=== PATIENT | female | born 1960 | race African-American/Black ===

== ENCOUNTER → 2018-02-06 07:17 | Outpatient (CLI) | payer MEDICAID, SELFPAY ==
--- NOTE | 2018-02-06 | BRBX_PTH ---
PATIENT: OFELIA MCCARTHY LOC: [facility] U#:[id number] AGE/SX: 64/F ROOM: RE02/06/[address]: Dr. Shyanne Layton MD : 1960 BED: DIS: SPEC #: [id number] RECD: 02/06/18 12:18 STATUS: BRITTON REQ #: [id number] REDD: 02/06/18 00:[address]: Shyanne Layton DEPT: SURGICAL PATHOLOGY RECD BY: Cooper Stock ENTERED: 02/06/18 12:19 SP TYPE: BREAST BX OTHR DR: Dr. Dori Sharif MD Tissues: Right breast, NOS Procedures: Surgery Specimen Level IV HEADER OPERATION: Right stereotactic breast biopsy PRE-OP DIAGNOSIS: Right 1 o'clock middle depth breast microcalcifications TISSUE SUBMITTED: Right breast core tissue ISCHEMIC TIME: 1 minute FIXATION TIME: 9.5 hours MICROSCOPIC DIAGNOSIS Right breast, 1 o'clock middle depth, stereotactic core biopsy: Hyalinized fibroadenoma with focal calcification. Negative for atypia or malignancy. CHARITO:steve 02/07/18 COMMENT The specimen predominantly consists of fatty benign breast tissue and one fragment of hyalinized fibroadenoma. Correlation with clinical, radiologic findings and appropriate follow up are necessary. MICROSCOPIC DESCRIPTION Slides are reviewed. GROSS DESCRIPTION Received is one container labeled with the patient's name and not further designated. The specimen consists of multiple elongated fragments of brown-yellow fibroadipose tissue that in aggregate measure 5 x 3 x 0.3 cm. The entire specimen is submitted in two cassettes. / CHARITO:steve 02/06/18 TC:1 CPT: 83570
--- NOTE | 2018-02-06 11:13 | PCM.OPRPT ---
Report of Operation Date of Procedure: 02/06/18 Pre-Operative Diagnosis: abnormal calcifications of upper inner right breast by mammograms Post-Operative Diagnosis: Same Surgery/Procedure Performed:: right stereotactic breast biopsy Description of Surgical Findings:: abnormal calcifications on upper inner aspect of right breast Type of Anesthesia:: Local - 1% xylocaine Anesthesiologist: none Specimen's removed: right breast tissue Estimated Blood Loss (mL): < 1 cc Fluids Replaced: none Description of Procedure: After informed consent was given, the patient was brought into the breast biopsy suite. Appropriate time out protocol was followed. She was then placed in the prone position on the stereotactic biopsy table. The patient?s right breast was then placed in the opening at the head of the table. A artificial cherry maker compression mammogram was then obtained in the CC view. The abnormal calcifications were then identified. Stereo pictures of the lesion were then taken for XYZ coordinates. The Mammotome biopsy stylus was then positioned where it would be entering into the patient?s breast. The skin at this site was then cleansed with a surgical skin preparation. The skin and subcutaneous tissues at this site were then infiltrated with 1% xylocaine. A small skin incision was made with an 11 blade scalpel. The biopsy stylus was then positioned into the patient?s breast at the proper coordinates of depth. Using the Mammotome vacuum-assist device, several core samples of breast tissue were obtained. A specimen mammogram was the obtained and revealed that the calcifications were within the specimen. A hemostatic marker clip was then placed into the biopsy cavity and a artificial cherry maker film revealed that it was properly deployed. The patient was then placed in the supine position and pressure was applied to the breast until no active bleeding was noted. Steristrips were applied to reapproximate the skin. A unilateral mammogram in the CC and MLO view were then taken which revealed that the marker clip was in the same area as the previous suspicious lesion. The patient tolerated the procedure well and was discharged from the breast biopsy suite in good condition.
--- NOTE | 2018-02-06 11:17 | OP.PCM_ITS ---
Report of Operation Date of Procedure: 02/06/18 Pre-Operative Diagnosis: abnormal calcifications of upper inner right breast by mammograms Post-Operative Diagnosis: Same Surgery/Procedure Performed:: right stereotactic breast biopsy Description of Surgical Findings:: abnormal calcifications on upper inner aspect of right breast Type of Anesthesia:: Local - 1% xylocaine Anesthesiologist: none Specimen's removed: right breast tissue Estimated Blood Loss (mL): < 1 cc Fluids Replaced: none Description of Procedure: After informed consent was given, the patient was brought into the breast biopsy suite. Appropriate time out protocol was followed. She was then placed in the prone position on the stereotactic biopsy table. The patient?s right breast was then placed in the opening at the head of the table. A bomb squad commander compression mammogram was then obtained in the CC view. The abnormal calcifications were then identified. Stereo pictures of the lesion were then taken for XYZ coordinates. The Mammotome biopsy stylus was then positioned where it would be entering into the patient?s breast. The skin at this site was then cleansed with a surgical skin preparation. The skin and subcutaneous tissues at this site were then infiltrated with 1% xylocaine. A small skin incision was made wi th an 11 blade scalpel. The biopsy stylus was then positioned into the patient?s breast at the proper coordinates of depth. Using the Mammotome vacuum-assist device, several core samples of breast tissue were obtained. A specimen mammogram was the obtained and revealed that the calcifications were within the specimen. A hemostatic marker clip was then placed into the biopsy cavity and a bomb squad commander film revealed that it was properly deployed. The patient was then placed in the supine position and pressure was applied to the breast until no active bleeding was noted. Steristrips were applied to reapproximate the skin. A unilateral mammogram in the CC and MLO view were then taken which revealed that the marker clip was in the same area as the previous suspicious lesion. The patient tolerated the procedure well and was discharged from the breast biopsy suite in good condition.
== END ==
PROVIDERS: Family Provider Internal Medicine; PCP Internal Medicine; Referring Provider Surgery; Visit Provider Surgery
DX: R92.0 Mammographic microcalcification found on diagnostic imaging of breast (principal); E11.9 Type 2 diabetes mellitus without complications; I10 Essential (primary) hypertension; G47.33 Obstructive sleep apnea (adult) (pediatric); M54.5 Low back pain; G89.29 Other chronic pain; Z79.899 Other long term (current) drug therapy; Z79.82 Long term (current) use of aspirin
CPT/HCPCS: 19081; 88305; J7050; A4648

== ENCOUNTER 2019-02-16 10:56 | Day surgery (SDC) | payer MEDICAID, SELFPAY ==
--- NOTE | 2019-02-15 17:58 | HP.PCM_ITS ---
History and Physical Date of Admission: 02/16/19 HISTORY AND PHYSICAL ? Karin Talbot 1960 ? REFERRING PHYSICIAN: Dori Sharif MD ? CHIEF COMPLAINT: colon consult ? HPI: The patient is a 58 year old female referred for endoscopy. Karin notes no colon complaints. Patient denies any change in bowel habits, weight changes, blood in stools, black tarry stools or abdominal pain. Denies family history of colon issues. ? The patient NOTES complaints of acid reflux nearly every day, dating back to 2001. Has been on omeprazole long-term with partial control of symptoms. She notes having a remote EGD but none recently. ? Patient had a prior colonoscopy done in [place] in 2013, states had polyps at that time. Operative report and pathology not available for review, but post- procedure note from [facility] [place] reviewed and shows recommendation for recall in 5 years. Patient NOTES that she was completely awake during her last colonoscopy and remembers watching the entire procedure on a screen. ? Patient's past medical history is significant for rheumatoid arthritis, obstructive sleep apnea, hypertension, type II diabetes mellitus, chronic back pain. ? ? PAST?MEDICAL?HISTORY ? Chronic lower back pain ? ? occasional sciatica pain ? Diabetes mellitus type II, controlled (HCC) ? ? HTN, goal below 140/90 03/14/2016 ? SIXTO (obstructive sleep apnea) ? ? [facility] [address] fx. [phone] ? Rheu arthritis w rheu factor mult site w/o org/sys involv (HCC) ? ?? PAST?SURGICAL?HISTORY ? BIOPSY OF BREAST-STEREOTATIC Right 02/06/2018 ?? CURRENT?MEDICATIONS gabapentin (NEURONTIN) 300 mg capsule May take 2- 3 capsules at bedtime as needed for restless legs and insomnia. ciclopirox (LOPROX) 0.77 % susp Apply 1 application to affected area twice daily. To soles of feet and between toes for 4 weeks then discontinue liraglutide (VICTOZA) 0.6 mg/ 0.1 ml subcutaneous pen injector Inject 1.8 mg subcutaneously once daily. Insulin [place], Disposable, (BD ULTRA-FINE HALLIE PEN NEEDLE) 32 gauge x 5/32 ndle Use one needle for each dose. 1x/day. hydroCHLOROthiazide (HYDRODIURIL, ESIDRIX) 25 mg tablet Take 1 tablet by mouth once daily. metFORMIN ER (GLUCOPHAGE XR) 500 mg 24 hr tablet Take 1 tab by mouth daily in the morning and 2 tabs in the evening blood sugar diagnostic (FREESTYLE LITE STRIPS) test strip Test blood sugar(s) 2x times daily. Dx: Type 2 DM - Uncontrolled E11.65 Insulin: No meloxicam (MOBIC) 15 mg tablet Take 1 tablet by mouth once daily. lisinopril (ZESTRIL, PRINIVIL) 40 mg tablet Take 1 tablet by mouth once daily. aspirin, enteric coated (ADULT LOW DOSE ASPIRIN) 81 mg EC tablet Take 1 tablet by mouth once daily. furosemide (LASIX) 20 mg tablet Take 1 tablet by mouth once daily. atenolol (TENORMIN) 25 mg tablet Take 1 tablet by mouth once daily. atorvastatin (LIPITOR) 40 mg tablet Take 1 tablet by mouth once daily. fluticasone (FLONASE) 50 mcg/actuation nasal spray Use 1 [place] in each nostril once daily. omeprazole (PRILOSEC) 20 mg capsule Take 1 capsule by mouth daily before breakfast. acetaminophen (TYLENOL ARTHRITIS PAIN) 650 mg CR tablet Take 1 tablet by mouth twice daily. (Patient not taking: Reported on 10/ escitalopram oxalate (LEXAPRO) 10 mg tablet Take 0.5 tablets by mouth once daily. Potassium Chloride (KLOR-CON 8) 8 mEq tablet Take 1 tablet by mouth once daily. estradiol (CLIMARA) 0.025 mg/24 hr Apply 1 Patch as directed once each week. lancets (FREESTYLE LANCETS) 28 gauge [facility] Test blood sugar(s) 2 times daily and as needed. Dx: Type 2 DM - Uncontrolled E11.65 Insulin: Yes Magnesium 250 mg tab Take 2 tablets by mouth daily at bedtime. hydrocortisone 2.5 % cream Apply 1 application to affected area twice daily. Apply to affected area sparingly. CPAP Need for supplies: Filters, suitable mask per pt preference, chin strap, head gear, humidity, tubing, lifetime supplies. G47.33 Obstructive Sleep Apnea flash glucose scanning reader (FREESTYLE SHE READER) [facility] Use to check blood sugar flash glucose sensor (FREESTYLE SHE SENSOR) kit Use to check blood sugar CPAP Mask (per patient preference) optional chin strap (if indicated), filters, tubing /please send heated tubing, heated humidity and lifetime supplies. Dx. SIXTO G47.33 327.23 CPAP AutoPAP 12-20 cmH2O, suitable mask, humidity, filters. Lifetime supplies. Dx: G47.33 ? ? ALLERGIES: Flagyl [Nitroimidazoles]; Iron; [place] [Hydrocodone-Acetaminophen] ? PERSONAL HISTORY: Socioeconomic History Marital status: Spouse name: Not on file Number of children: Not on file Years of education: Not on file Highest education level: Not on file Occupational History Not on file Social Needs Financial resource strain: Not on file Food insecurity: Worry: Not on file Inability: Not on file Transportation needs: Medical: Not on file Non-medical: Not on file Tobacco Use Smoking status: Never Smoker Smokeless tobacco: Never Used Substance and Sexual Activity Alcohol use: No Drug use: No Sexual activity: Not on file Lifestyle Physical activity: Days per week: Not on file Minutes per session: Not on file Stress: Not on file Relationships Social connections: Talks on phone: Not on file Gets together: Not on file Attends confucianism service: Not on file Active member of club or organization: Not on file Attends meetings of clubs or organizations: Not on file Relationship status: Not on file Intimate partner violence: Fear of current or ex partner: Not on file Emotionally abused: Not on file Physically abused: Not on file Forced sexual activity: Not on file Other Topics Concerns: Not on file Social History Narrative Not on file ? FAMILY HISTORY: ? COPD Mother ? ? Diabetes Mother ? ? Diabetes Father ? ? other (htn) Father ? ? other (htn) Brother ? ? other (kidney failure) Brother ? ? REVIEW OF SYSTEMS: General: The patient NOTES fatigue, denies weight loss, NOTES weight gain, NOTES feeling hot, and denies feelings of cold. Eyes: The patient denies glaucoma, denies eye injury/surgery, wears glasses or contacts. Ear/Nose/Throat: The patient denies allergies, NOTES hayfever, denies ear infections, and denies bloody noses. Cardiovascular: The patient denies chest pain, denies heart disease, NOTES high blood pressure,denies cardiac stent, denies prior heart attack, denies irregular heart beat, NOTES high cholesterol, denies poor circulation, denies heart failure, other cardiac issues, denies claudication, denies cold feet, denies peripheral arterial stent. Respiratory: The patient denies tuberculosis, denies pneumonia, denies frequent cough, denies pulmonary embolism, denies shortness of breath, and denies coughing up blood. Gastrointestinal: The patient denies difficulty swallowing, NOTES acid reflux, denies ulcers, denies vomiting, denies jaundice/hepatitis, denies gallbladder problems, denies black or tarry stools, denies hemorrhoids, denies bleeding from rectum, denies diverticulitis, denies constipation, denies diarrhea, denies loss of stool control, and denies hernias. Kidney/Bladder: The patient denies kidney stones, denies urine infections, and denies bloody urine. Skin: The patient denies a history of skin cancer, denies bleeding/changing moles, and denies a history of skin rash. Neurologic: The patient denies a history of epilepsy/convulsions, denies headaches, denies head/spinal injuries, and denies stroke/TIA. Psychiatric: The patient denies psychiatric medications, denies depression, and denies voices, denies substance abuse. Endocrine: The patient denies thyroid disorders, NOTES diabetes, and denies hormonal problems. Hematologic: The patient denies a history of bruising, denies bleeding, and NOTES anemia, denies blood clots. Infections: The patient denies a history of measles and mumps, denies rheumatic fever, and denies sexually transmitted diseases. Musculoskeletal: The patient denies back pain/injury, denies back problems, denies sciatica, denies knee/foot trouble, NOTES arthritis, or denies gout. ? I have confirmed and edited as necessary, the PFSH and ROS obtained by others. ? PHYSICAL EXAMINATION: ? General: The patient is 58 year old female, well nourished, well hydrated in no acute distress. The patient is oriented to time, place, and person. ? VITALS: Blood pressure 138/74, pulse 90, temperature 36.3 ?C (97.4 ?F), temperature source Temporal Artery, resp. rate 14, height 165.1 cm (5' 5), weight 119.3 kg (263 lb), SpO2 92 %. Body mass index is 43.77 kg/m?. ? HEENT: Normal cephalic, ataumatic, pupils are equally round, sclera are anicteric, mucous membranes are moist, oropharynx is clear. Neck has no masses, asymmetry or lymphadenopathy. ? Respiratory: Clear to auscultation and percussion. Normal respiratory excursion and pattern. ? Cardiac: Examination is regular rate and rhythm. Normal S1/S2 ? Abdominal exam: Soft, nontender, with no palpable masses. No hepatosple nomegaly. No palpable hernias. ? Extremities: no clubbing, cyanosis or edema. No adenopathy. ? LABORATORY VALUES: As Noted ? RADIOLOGIC STUDIES: As Noted IMPRESSION: personal history of colon polyps, need for repeat screening colonoscopy. GERD and long-term PPI use, recommend EGD in addition to colonoscopy ? PLAN: I have reviewed my findings with the surgeon. Will plan for upper and lower endoscopy. We discussed the risks and benefits of the planned endoscopy. I have informed the patient that complications can occur including failure to complete the endoscopy and perforation. The patient had the opportunity to ask questions concerning the planned endoscopy. My staff has also explained the procedure to the patient in understandable terms and has given the patient printed material concerning the procedure. The patient freely consents to surgery. ? I plan to use Golytely bowel preparation ? Patient instructed to contact PCP for instructions regarding diabetic medication, which may require adjustment during bowel preparation and/or day of procedure. She may take her other routine medications as usual ? ? The patient has recall from their previous endoscopy performed under conscious sedation, therfore we will plan for procedure to be performed under Monitored Anesthetic Care. ? ? Diagnoses: (Z12.11) Encounter for screening for malignant neoplasm of colon (primary encounter diagnosis) (Z86.010) Personal history of colonic polyps (K21.9) Gastroesophageal reflux disease, esophagitis presence not specified ? ? Enid Trinh PA-C
[2019-02-16 11:15] VITALS: BP 144/82; PULSE 78; RESP 16; TEMP 36.4; O2SAT 98; BMI 43.6
[2019-02-16 11:31] LABS: Bedside Glucose 97 mg/dL (70-110)
[2019-02-16] MEDS: Lactated Ringers 1,000 ML 100 ML IV ×2 (11:45→13:05)
--- NOTE | 2019-02-16 12:00 | EGD_PTH ---
PATIENT: OFELIA MCCARTHY LOC: [facility] U#:[id number] AGE/SX: 58/F ROOM: RE02/16/[address]: Dr. Shyanne Layton MD : 1960 BED: DIS: 02/16/2019 SPEC #: [id number] RECD: 02/16/19 14:29 STATUS: BRITTON K[place]LEY #: [id number] REDD: 02/16/19 12:[address]: Shyanne Layton DEPT: SURGICAL PATHOLOGY RECD BY: Niko Tamayo ENTERED: 02/16/19 14:41 SP TYPE: EGD BIOPSY OT DR: Dr. Dori Sharif MD Tissues: Gastric mucous membrane Procedures: Surgery Specimen Level IV HEADER OPERATION: Colonoscopy, EGD ([facility]) PRE-OP DIAGNOSIS: GERD, long time use PPI, personal history colon polyps TISSUE SUBMITTED: Gastric polyps MICROSCOPIC DIAGNOSIS Gastric polyps, biopsy: Consistent with fragments of hyperplastic/inflammatory polyp with focal ulceration. See comment. CHARITO:steve 02/17/19 COMMENT Immunohistochemistry for Helicobacter pylori can be performed if clinically indicated. Please notify the Laboratory if it is needed. MICROSCOPIC DESCRIPTION Slides are reviewed. GROSS DESCRIPTION Received in fixative is one container labeled with the patient's name and designated gastric polyps. The specimen consists of multiple irregular fragments of light brown soft tissue that in aggregate measure 1.5 x 0.5 x 0.1 cm. The specimen is totally submitted in one cassette. / CHARITO:steve 02/16/19 TC:5 CPT: 87099
--- NOTE | 2019-02-16 13:04 | OP.ENDO_ITS ---
02/16/2019 Dori Sharif [address] [place] [address] Re : Upper GI endoscopy procedure for Karin Talbot Dear Dr. Sharif This procedure was performed on Saturday, February 16, 2019. My impressions and recommendations are as follows: Impressions : - Normal first portion of the duodenum and second portion of the duodenum. - A few gastric polyps. Resected and retrieved. - No gross lesions in esophagus. Recommendations : - Discharge patient to home (ambulatory). - Resume previous diet. - Continue present medications. - Await pathology results. - My office will telephone with pathology results in 1-2 weeks My findings are described in the full procedure note, which is enclosed. If I can be of further assistance, please feel free to contact me at Doctor phone number(s): , Work: . Sincerely, MD Shyanne Carrasquillo MD 02/16/2019 1:04:32 PM This report has been signed electronically.
[2019-02-16 13:25] VITALS: BP 109/57; BP 144/82; PULSE 71; RESP 16; TEMP 36.6; O2SAT 94
--- NOTE | 2019-02-16 13:26 | OP.ENDO_ITS ---
02/16/2019 Dori Sharif [address] [place] [address] Re : Colonoscopy procedure for Karin Antione Dear Dr. Sharif This procedure was performed on Saturday, February 16, 2019. My impressions and recommendations are as follows: Impressions : - Non-bleeding internal hemorrhoids. - No specimens collected. Recommendations : - Repeat colonoscopy in 5 years for surveillance. - Return to primary care physician PRN. - Continue present medications. My findings are described in the full procedure note, which is enclosed. If I can be of further assistance, please feel free to contact me at Doctor phone number(s): , Work: . Sincerely, MD Shyanne Carrasquillo MD 02/16/2019 1:26:25 PM This report has been signed electronically.
[2019-02-16 13:30] VITALS: BP 102/58; BP 144/82; PULSE 71; RESP 16; O2SAT 94
[2019-02-16 13:35] VITALS: BP 110/62; BP 144/82; PULSE 79; RESP 16; O2SAT 96
[2019-02-16 13:40] VITALS: BP 114/61; BP 144/82; PULSE 74; RESP 16; TEMP 36.6; O2SAT 97
[2019-02-16 14:08] VITALS: BP 144/82
== END 2019-02-16 14:09 | disposition home or self-care (01) ==
LOC: EN 10:57 → AC 11:00
PROVIDERS: Family Provider Internal Medicine; PCP Internal Medicine; Referring Provider Internal Medicine; Visit Provider Surgery
PROC: 0DJD8ZZ Inspection of Lower Intestinal Tract, Via Natural or Artificial Opening Endoscopic (ICD-10-PCS; CPT 45378; principal; 2019-02-16 11:55)
DX: Z12.11 Encounter for screening for malignant neoplasm of colon (principal); K31.7 Polyp of stomach and duodenum; K64.8 Other hemorrhoids; K21.9 Gastro-esophageal reflux disease without esophagitis; E78.00 Pure hypercholesterolemia, unspecified; G25.81 Restless legs syndrome; I10 Essential (primary) hypertension; G89.29 Other chronic pain; G47.33 Obstructive sleep apnea (adult) (pediatric); M06.9 Rheumatoid arthritis, unspecified; E11.65 Type 2 diabetes mellitus with hyperglycemia; Z79.84 Long term (current) use of oral hypoglycemic drugs; Z79.899 Other long term (current) drug therapy
CPT/HCPCS: 43239; 45378; 82962; 88305; J7050; J7120; J2405